=== PATIENT | female | born 1940 | race Hispanic/Latino ===

== ENCOUNTER 2021-12-14 15:14 | Outpatient (CLI) | payer OTHER | END 2021-12-14 15:15 | disposition home or self-care (01) | LOC: ULT 15:14 | PROVIDERS: ATTEND Family Medicine | DX: I26.92 Saddle embolus of pulmonary artery without acute cor pulmonale (principal); M79.89 Other specified soft tissue disorders; R13.10 Dysphagia, unspecified; R53.1 Weakness; G93.1 Anoxic brain damage, not elsewhere classified | CPT/HCPCS: 93970 ==

== ENCOUNTER 2022-06-29 09:37 | Outpatient (CLI) | payer OTHER | END 2022-06-29 09:38 | disposition home or self-care (01) | LOC: RAD 09:37 | PROVIDERS: ATTEND Internal Medicine Critical Care Medicine | DX: R06.00 Dyspnea, unspecified (principal) | CPT/HCPCS: 71046 ==